=== PATIENT | female | born 1980 | race Caucasian/White ===

== ENCOUNTER 2023-01-09 08:19 | Emergency (ER) | payer MEDICAID ==
[~2023-01-09] VITALS: Ht 167.6 cm; Wt 59.0 kg
[2023-01-09 09:11] VITALS: BP 132/76; PULSE 89; RESP 18; TEMP 97; O2SAT 98
[2023-01-09 09:27] VITALS: BP 132/76; PULSE 89; RESP 18; TEMP 97; O2SAT 98
== END 2023-01-09 09:28 | disposition home or self-care (01) ==
LOC: MED 08:19
DX: M54.50 Low back pain, unspecified (principal); M54.2 Cervicalgia; Z79.899 Other long term (current) drug therapy
CPT/HCPCS: 99282